=== PATIENT | male | born 1945 ===

== ENCOUNTER 2019-06-22 11:10 | Day surgery (SDC) | payer OTHER | END 2019-06-22 14:50 | disposition home or self-care (01) | LOC: AMB-ENDOS 11:10 → ADM 07-16 13:15 | DX: D12.8 Benign neoplasm of rectum (principal) ==

== ENCOUNTER 2021-03-15 08:00 | Outpatient (CLI) | payer OTHER ==
[2021-03-15] MEDS ORDERED: VASOTEC10 MG PO (16:48)
[2021-03-15] MEDS ORDERED: DAILY VALUE1 EACH PO (16:49)
== END 2021-03-15 08:30 | disposition home or self-care (01) ==
LOC: PPH VACUNA 08:00
PROVIDERS: ATTEND Emergency Medicine Pediatric Emergency Medicine
DX: Z23 Encounter for immunization (principal)

== ENCOUNTER 2021-03-15 11:20 | Inpatient (IN) | payer OTHER ==
[~2021-03-15] VITALS: Ht 172.7 cm; Wt 84.8 kg
[2021-03-15] MEDS ORDERED: VASOTEC10 MG PO (16:48)
[2021-03-15] MEDS ORDERED: DAILY VALUE1 EACH PO (16:49)
[2021-03-21] MEDS ORDERED: ST. JOSEPH ASPI81 M2 (13:09)
[2021-03-21] MEDS ORDERED: NAPROXEN500 MG (13:10)
[2021-03-27] MEDS ORDERED: TAMS0.4C PO (08:35)
== END 2021-03-27 14:23 | disposition home or self-care (01) | DRG 330 ==
LOC: SURH 03-21 07:00 → O/R 03-21 08:37 → SURH 03-21 08:37
PROVIDERS: ADMIT Surgery; ATTEND Surgery
PROC: 0DTN4ZZ Resection of Sigmoid Colon, Percutaneous Endoscopic Approach (ICD-10-PCS; 2021-03-21)
PROC: 07BC4ZX Excision of Pelvis Lymphatic, Percutaneous Endoscopic Approach, Diagnostic (ICD-10-PCS; 2021-03-21)
PROC: 3E0F7SF Introduction of Other Gas into Respiratory Tract, Via Natural or Artificial Opening (ICD-10-PCS; 2021-03-21)
PROC: 0DTP4ZZ Resection of Rectum, Percutaneous Endoscopic Approach (ICD-10-PCS; principal; 2021-03-21 07:00)
DX: C20 Malignant neoplasm of rectum (principal); K62.5 Hemorrhage of anus and rectum; K62.89 Other specified diseases of anus and rectum